=== PATIENT | male | born 1970 | race African-American/Black ===

== ENCOUNTER 2017-01-22 14:16 | Emergency (ER) | payer MEDICAID ==
[~2017-01-22 14:16] MED LIST: ALBU8HFA IH
== END 2017-01-22 14:52 | disposition left against medical advice (07) ==
LOC: EMS 14:20
DX: M79.604 Pain in right leg (principal); Z53.21 Procedure and treatment not carried out due to patient leaving prior to being seen by health care provider

== ENCOUNTER 2017-03-01 02:31 | Emergency (ER) | payer MEDICAID ==
[~2017-03-01] VITALS: Ht 180.3 cm; Wt 75.0 kg
[2017-03-01] MEDS ORDERED: ALBUTEROL SULFATE HFA 90 MCG/PUFF 8 GM INHALER IH ONE (04:00)
[2017-03-01 04:01] VITALS: BP 134/77
== END 2017-03-01 04:03 | disposition home or self-care (01) ==
LOC: EMS 02:32
DX: J45.909 Unspecified asthma, uncomplicated (principal)
CPT/HCPCS: 94640; 99283; J3535

== ENCOUNTER 2017-04-27 07:06 | Emergency (ER) | payer MEDICAID ==
[~2017-04-27] VITALS: Ht 180.3 cm; Wt 68.2 kg
[2017-04-27 07:42] LABS: ANION GAP 12 mmol/L (8-16); CALCIUM, TOTAL 9.6 mg/dL (8.8-10.5); CARBON DIOXIDE 28 mmol/L (22-29); CHLORIDE 105 mmol/L (98-107); GLOMERULAR FILTR. RATE CALC > 60 mL/min (>60); POTASSIUM 4.2 mmol/L (3.5-5.1); SODIUM SERUM 145 mmol/L (136-145); UREA NITROGEN, BLOOD 5 mg/dL (7-18)
[2017-04-27] MEDS ORDERED: ALBUTEROL SULFATE 2.5 MG/0.5 ML NEB SOLUTION NEB ONE (07:45)
[2017-04-27] MEDS ORDERED: IPRATROPIUM BROMIDE 0.5 MG/2.5 ML NEB SOLUTION NEB ONE (07:45)
[2017-04-27 07:51] LABS: ALANINE AMINOTRANSFERASE 35 U/L (12-78); ASPARTATE AMINOTRANSFERASE 55 U/L (15-37); BILIRUBIN,TOTAL 0.5 mg/dL (0.1-1.0)
[2017-04-27 07:52] LABS: HEMATOCRIT 42.1 % (41-53); HEMOGLOBIN 14.4 g/dL (13.5-17.5); MEAN CORPUSCULAR HEMOGLOBIN 30.8 pg (26.0-34.0); MEAN CORPUSCULAR HGB CONC 34.3 G/dL (31.0-37.0); MEAN CORPUSCULAR VOLUME 90 fL (80-100); PLATELET COUNT (AUTO) 184 K/uL (150-450); RED BLOOD CELL COUNT(AUTO) 4.69 MIL/uL (4.50-5.90); RED CELL DISTRIBUTION WIDTH 16.8 % (11.5-14.5); WHITE BLOOD COUNT (AUTO) 3.9 K/uL (4.5-11.0)
[2017-04-27 07:56] LABS: APPEARANCE,URINE CLEAR (CLEAR); GLUCOSE, URINE (UA) NEGATIVE (NEGATIVE); KETONES,URINE NEGATIVE (NEGATIVE); LEUKOCYTE ESTERASE ,URINE MODERATE (NEGATIVE); OCCULT BLOOD,URINE NEGATIVE (NEGATIVE); PH,URINE 7.5 (5.0-8.0); PROTEIN,URINE POS 1+ (NEGATIVE)
[2017-04-27 07:59] LABS: ADD UA MICROSCOPIC YES
[2017-04-27 08:09] LABS: RBC,URINE 0-2 /HPF (0-2); SQUAMOUS EPITHELIAL CELL,UR Many /LPF (None Seen)
[2017-04-27 08:31] VITALS: BP 138/92
[2017-04-27 10:51] LABS: EOSINOPHILS % (MANUAL) 7 % (1-6); LYMPHOCYTES % (MANUAL) 56 % (22-44); TOTAL CELLS COUNTED 100
[2017-04-28] MEDS ORDERED: IPRATROPIUM BROMIDE 0.5 MG/2.5 ML NEB SOLUTION NEB ONE (14:19)
== END 2017-04-27 09:23 | disposition home or self-care (01) ==
LOC: EMS 07:07
DX: J45.901 Unspecified asthma with (acute) exacerbation (principal); R10.13 Epigastric pain
CPT/HCPCS: 36415; 80053; 81001; 83690; 85025; 87086; 94640; 99284; J7613

== ENCOUNTER 2022-07-25 09:07 | Emergency (ER) | payer MEDICAID, OTHER ==
[~2022-07-25] VITALS: Ht 180.3 cm; Wt 72.7 kg
[2022-07-25] MEDS ORDERED: LISI-893 PO (09:24)
[2022-07-25 11:08] VITALS: BP 141/89
== END 2022-07-25 11:33 | disposition home or self-care (01) ==
LOC: EMS 09:21
DX: R07.89 Other chest pain (principal); Z76.0 Encounter for issue of repeat prescription; Z53.21 Procedure and treatment not carried out due to patient leaving prior to being seen by health care provider

== ENCOUNTER 2023-02-06 07:51 | Emergency (ER) | payer OTHER ==
[~2023-02-06] VITALS: Ht 180.3 cm; Wt 77.3 kg
[~2023-02-06 07:51] MED LIST changes: +ALBU18HF12 IH; -ALBU8HFA IH; +LISI-893 PO
[2023-02-06 08:02] VITALS: BP 163/93
[2023-02-06] MEDS ORDERED: ALBU18HF12 IH (08:33)
[2023-02-06] MEDS ORDERED: ALBUTEROL SULFATE HFA 90 MCG/PUFF 8 GM INHALER IH ONE (08:45)
== END 2023-02-06 09:37 | disposition home or self-care (01) ==
LOC: EMS 07:51
DX: J45.909 Unspecified asthma, uncomplicated (principal); I10 Essential (primary) hypertension; F17.210 Nicotine dependence, cigarettes, uncomplicated
CPT/HCPCS: 99283; 94640; J3535

== ENCOUNTER 2024-03-12 07:59 | Emergency (ER) | payer OTHER ==
[~2024-03-12] VITALS: Ht 180.3 cm; Wt 72.7 kg
[2024-03-12 08:04] VITALS: TEMP 98.1
[2024-03-12 08:12] VITALS: BP 147/91
[2024-03-12] MEDS: ALBUTEROL SULFATE HFA 90 MCG/PUFF 8 GM INHALER IH ONE (08:32)
[2024-03-12 08:35] VITALS: PULSE 71; RESP 20; O2SAT 98
== END 2024-03-12 12:21 | disposition home or self-care (01) ==
LOC: EMS 07:59
DX: J45.901 Unspecified asthma with (acute) exacerbation (principal); F17.200 Nicotine dependence, unspecified, uncomplicated; I10 Essential (primary) hypertension; Z76.0 Encounter for issue of repeat prescription
CPT/HCPCS: 99284; 94640; J3535

== ENCOUNTER 2024-03-25 01:58 | Emergency (ER) | payer OTHER ==
[~2024-03-25] VITALS: Ht 180.3 cm; Wt 72.7 kg
[2024-03-25 02:19] VITALS: PULSE 58; RESP 18; O2SAT 97
[2024-03-25] MEDS: IPRATROPIUM BROMIDE 0.5 MG/2.5 ML NEB SOLUTION NEB ONE (02:19)
[2024-03-25] MEDS: ALBUTEROL SULFATE 2.5 MG/0.5 ML NEB SOLUTION NEB ONE (02:19)
[2024-03-25 02:29] LABS: COVID AG,FIA SOURCE NASAL SWAB
[2024-03-25 02:36] LABS: BASOPHILS % (AUTO) 1.4 % (0.0-2.0); EOSINOPHILS % (AUTO) 5.4 % (1.0-6.0); HEMOGLOBIN 12.5 g/dL (13.5-17.5); LYMPHOCYTES # (AUTO) 1.6 K/uL (1.0-4.8); LYMPHOCYTES % (AUTO) 36.4 % (22.0-44.0); MEAN CORPUSCULAR HEMOGLOBIN 30.5 pg (26.0-34.0); MEAN CORPUSCULAR HGB CONC 32.8 G/dL (31.0-37.0); MEAN CORPUSCULAR VOLUME 93 fL (80-100); MONOCYTES # (AUTO) 0.6 K/uL (0.1-1.0); MONOCYTES % (AUTO) 12.7 % (2.0-9.0); NEUTROPHILS % (AUTO) 44.1 % (40.0-70.0); PLATELET COUNT (AUTO) 215 K/uL (150-450); RED BLOOD CELL COUNT(AUTO) 4.09 MIL/uL (4.50-5.90); RED CELL DISTRIBUTION WIDTH 15.3 % (11.5-14.5); WHITE BLOOD COUNT (AUTO) 4.5 K/uL (4.5-11.0)
[2024-03-25 02:43] LABS: ANION GAP 5 mmol/L (8-16); CARBON DIOXIDE 33 mmol/L (22-29); CHLORIDE 106 mmol/L (98-107); CREATININE 1.05 mg/dL (0.60-1.30); GLOMERULAR FILTR. RATE CALC > 60 mL/min (>60); GLUCOSE,RANDOM 87 mg/dL (70-110); POTASSIUM 3.7 mmol/L (3.5-5.1); SODIUM SERUM 144 mmol/L (136-145); UREA NITROGEN, BLOOD 6 mg/dL (7-18)
[2024-03-25 02:50] LABS: TROPONIN I-HIGH SENSITIVITY 12 ng/L (<76)
[2024-03-25 02:55] LABS: INFLUENZA TYPE A NEGATIVE FOR TYPE A (NEGATIVE); INFLUENZA TYPE B NEGATIVE FOR TYPE B (NEGATIVE)
[2024-03-25 02:57] LABS: SARS-COV2 (COVID) ANTIGEN,FIA Negative (Negative)
[2024-03-25 03:00] LABS: B-TYPE NATRIURETIC PEPTIDE 13 pg/mL (0-100)
[2024-03-25] MEDS: ALBUTEROL SULFATE HFA 90 MCG/PUFF 8 GM INHALER IH ONE (03:00)
[2024-03-25 03:06] VITALS: PULSE 54; RESP 18; O2SAT 98
[2024-03-25 03:11] VITALS: TEMP 98
[2024-03-25 03:11] LABS: ALANINE AMINOTRANSFERASE 28 U/L (12-78); ALBUMIN 3.4 g/dL (3.4-5.0); ALKALINE PHOSPHATASE 62 U/L (46-116); ASPARTATE AMINOTRANSFERASE 26 U/L (15-37); BILIRUBIN,TOTAL 0.2 mg/dL (0.1-1.0); CREATINE KINASE, TOTAL ONLY 312 U/L (39-308); TOTAL PROTEIN, SERUM 6.7 g/dL (6.4-8.2)
[2024-03-25 03:44] VITALS: BP 150/79; PULSE 84; RESP 20
== END 2024-03-25 03:47 | disposition home or self-care (01) ==
LOC: EMS 01:59
DX: R06.00 Dyspnea, unspecified (principal); J45.909 Unspecified asthma, uncomplicated; I10 Essential (primary) hypertension; F17.210 Nicotine dependence, cigarettes, uncomplicated; Z20.822 Contact with and (suspected) exposure to COVID-19
CPT/HCPCS: 99285; 71045; 87426; 80053; 82550; 83880; 84484; 85025; 87804; 36415; 94640; 93005; J3535; J7613

== ENCOUNTER 2024-04-12 02:46 | Emergency (ER) | payer OTHER ==
[~2024-04-12] VITALS: Ht 180.3 cm; Wt 63.6 kg
[2024-04-12 02:53] VITALS: BP 166/97; PULSE 65; RESP 20; TEMP 97.6
== END 2024-04-12 04:25 | disposition left against medical advice (07) ==
LOC: EMS 02:46
DX: I10 Essential (primary) hypertension (principal); Z53.21 Procedure and treatment not carried out due to patient leaving prior to being seen by health care provider